=== PATIENT | female | born 1930 | race African-American/Black ===

== ENCOUNTER 2016-11-02 09:00 | Emergency (ER) | payer OTHER ==
[~2016-11-02] VITALS: Ht 157.5 cm; Wt 77.1 kg
[~2016-11-02 09:00] MED LIST: ALBUAER3 IN; CARV25TA55 PO; CLON0.2T PO; DILT120C48 PO; FAMO-12 PO; FURO40TA4 PO; INSUINJ37 SUBCUT; IPRIH IN; LATA0.00 EACHEYE; LISI40TA PO; PRAV20TA3 PO; RIV20T PO
[2016-11-02 10:28] LABS: Basophils # (auto) 0 uL; Basophils % (auto) 0.7 % (0.0-2.0); Eosinophils # (auto) 0.1 uL; Hematocrit 41.2 % (36.0-46.0); Hemoglobin 13.7 g/dL (12.2-16.2); Lymphocytes # (auto) 2.3 uL; Lymphocytes % (auto) 34.4 % (10.0-50.0); Mean Corpuscular Hemoglobin 31.1 pg (28.0-32.0); Mean Corpuscular Hgb Conc. 33.3 g/dL (32.0-36.0); Mean Corpuscular Volume 93.3 fL (80.0-100.0); Mean Platelet Volume 8.9 fL (6.9-10.8); Monocytes # (auto) 0.7 uL; Neutrophils # (auto) 3.5 uL; Neutrophils % (auto) 52.9 % (37.0-80.0); Nucleated Red Blood Cells % 0.1 %; Platelet Count (auto) 186 10^3/uL (140-450); Red Cell Distribution Width 15.8 % (11.8-14.3); White Blood Cell 6.7 10^3/uL (4.4-10.8)
[2016-11-02 10:40] LABS: INR 1.24 (0.9-1.15); Partial Thromboplastin Time 38.9 sec (22.64-33.71); Prothrombin Time 13.5 sec (9.37-12.3)
[2016-11-02 11:13] LABS: Albumin 2.9 g/dL (3.4-5.0); BUN/Creatinine Ratio 14.6; Bilirubin, Total 0.4 mg/dL (0.2-1.0); Calcium 8.7 mg/dL (8.5-10.1); Potassium 4.1 mmol/L (3.5-5.1); Total Protein 7.2 g/dL (6.4-8.2)
[2016-11-02 12:54] LABS: Basophils # (auto) 0.1 uL; Basophils % (auto) 0.9 % (0.0-2.0); Eosinophils # (auto) 0.1 uL; Eosinophils % (auto) 1.5 % (0.0-7.0); Hematocrit 43.8 % (36.0-46.0); Hemoglobin 14.5 g/dL (12.2-16.2); Lymphocytes % (auto) 41.2 % (10.0-50.0); Mean Corpuscular Hemoglobin 30.8 pg (28.0-32.0); Mean Corpuscular Volume 93.4 fL (80.0-100.0); Mean Platelet Volume 9.2 fL (6.9-10.8); Monocytes # (auto) 0.7 uL; Monocytes % (auto) 9.6 % (0.0-12.0); Neutrophils # (auto) 3.4 uL; Neutrophils % (auto) 46.8 % (37.0-80.0); Nucleated Red Blood Cells % 0.1 %; Platelet Count (auto) 178 10^3/uL (140-450); Red Cell Distribution Width 16.2 % (11.8-14.3); White Blood Cell 7.3 10^3/uL (4.4-10.8)
[2016-11-02 13:35] VITALS: BP 164/92
== END 2016-11-02 14:00 | disposition home or self-care (01) ==
LOC: ER 09:00
DX: K92.2 Gastrointestinal hemorrhage, unspecified (principal); E11.22 Type 2 diabetes mellitus with diabetic chronic kidney disease; I13.0 Hypertensive heart and chronic kidney disease with heart failure and stage 1 through stage 4 chronic kidney disease, or unspecified chronic kidney disease; N18.9 Chronic kidney disease, unspecified; J44.9 Chronic obstructive pulmonary disease, unspecified; E78.5 Hyperlipidemia, unspecified; Z86.711 Personal history of pulmonary embolism; Z90.49 Acquired absence of other specified parts of digestive tract
CPT/HCPCS: 36415; 74176; 80053; 85025; 85379; 85610; 85730; 93005

== ENCOUNTER 2016-12-19 21:40 | Emergency (ER) | payer OTHER ==
[~2016-12-19] VITALS: Ht 162.6 cm; Wt 81.6 kg
[~2016-12-19 21:40] MED LIST changes: -LATA0.00 EACHEYE; +LATA0.0020 EACHEYE
[2016-12-19] MEDS ORDERED: cloNIDine HCL 0.1 MG TAB PO ONE (22:15)
[2016-12-19 22:43] LABS: Basophils # (auto) 0 uL; Basophils % (auto) 0.8 % (0.0-2.0); Eosinophils # (auto) 0.2 uL; Eosinophils % (auto) 3.5 % (0.0-7.0); Hematocrit 43.7 % (36.0-46.0); Hemoglobin 14.3 g/dL (12.2-16.2); Lymphocytes # (auto) 2.2 uL; Lymphocytes % (auto) 37.7 % (10.0-50.0); Mean Corpuscular Hemoglobin 30.8 pg (28.0-32.0); Mean Corpuscular Hgb Conc. 32.8 g/dL (32.0-36.0); Mean Corpuscular Volume 93.8 fL (80.0-100.0); Monocytes # (auto) 0.7 uL; Monocytes % (auto) 11.6 % (0.0-12.0); Neutrophils # (auto) 2.7 uL; Neutrophils % (auto) 46.4 % (37.0-80.0); Nucleated Red Blood Cells % 0.1 %; Platelet Count (auto) 174 10^3/uL (140-450); Red Blood Cells 4.66 10^6/uL (4.0-5.20); Red Cell Distribution Width 16.6 % (11.8-14.3); White Blood Cell 5.8 10^3/uL (4.4-10.8)
[2016-12-19 22:55] LABS: Albumin 3.3 g/dL (3.4-5.0); BUN/Creatinine Ratio 13.6; Calcium 9.2 mg/dL (8.5-10.1); Magnesium 2.7 mg/dL (1.6-2.6); Potassium 4.3 mmol/L (3.5-5.1)
[2016-12-19 22:59] LABS: INR 1.53 (0.9-1.15); Partial Thromboplastin Time 46.9 sec (22.64-33.71); Prothrombin Time 16.8 sec (9.37-12.3)
[2016-12-19 23:00] LABS: Bilirubin, Total 0.4 mg/dL (0.2-1.0); Total Protein 7.2 g/dL (6.4-8.2)
[2016-12-20 01:00] VITALS: BP 179/75
== END 2016-12-20 01:34 | disposition home or self-care (01) ==
LOC: EDUNIT# 21:40 → EDBD 21:40 → ER 21:40
DX: R04.0 Epistaxis (principal); I13.0 Hypertensive heart and chronic kidney disease with heart failure and stage 1 through stage 4 chronic kidney disease, or unspecified chronic kidney disease; N18.9 Chronic kidney disease, unspecified; I50.9 Heart failure, unspecified; J44.9 Chronic obstructive pulmonary disease, unspecified; E11.22 Type 2 diabetes mellitus with diabetic chronic kidney disease; M10.9 Gout, unspecified; E78.5 Hyperlipidemia, unspecified; Z90.49 Acquired absence of other specified parts of digestive tract
CPT/HCPCS: 36415; 80053; 83735; 84484; 85025; 85610; 85730

== ENCOUNTER 2017-01-24 04:35 | Emergency (ER) | payer OTHER ==
[~2017-01-24] VITALS: Ht 157.5 cm; Wt 77.1 kg
[2017-01-24] MEDS ORDERED: MECLIZINE HCL 25 MG TAB PO ONE (05:00)
[2017-01-24] MEDS ORDERED: cloNIDine HCL 0.1 MG TAB PO ONE ×2 (05:00→11:45)
[2017-01-24 06:06] LABS: Basophils # (auto) 0 uL; Basophils % (auto) 0.8 % (0.0-2.0); Eosinophils # (auto) 0.1 uL; Eosinophils % (auto) 2.5 % (0.0-7.0); Hematocrit 44.5 % (36.0-46.0); Hemoglobin 14.8 g/dL (12.2-16.2); Lymphocytes # (auto) 2.2 uL; Lymphocytes % (auto) 40.5 % (10.0-50.0); Mean Corpuscular Hemoglobin 31.2 pg (28.0-32.0); Mean Corpuscular Hgb Conc. 33.3 g/dL (32.0-36.0); Mean Corpuscular Volume 93.7 fL (80.0-100.0); Mean Platelet Volume 8.9 fL (6.9-10.8); Monocytes # (auto) 0.6 uL; Monocytes % (auto) 10.9 % (0.0-12.0); Neutrophils # (auto) 2.4 uL; Neutrophils % (auto) 45.3 % (37.0-80.0); Platelet Count (auto) 172 10^3/uL (140-450); Red Cell Distribution Width 16.2 % (11.8-14.3); White Blood Cell 5.4 10^3/uL (4.4-10.8)
[2017-01-24 06:34] LABS: Urine Bilirubin Negative (Negative); Urine Blood Negative /uL (Negative); Urine Color Yellow (Yellow); Urine Glucose Normal (Normal); Urine Ketone Negative (Negative); Urine Nitrite Negative (Negative); Urine RBC 1 /hpf (0 - 4); Urine Squamous Epithelial Cell FEW /hpf (<5); Urine Urobilinogen Normal (Negative)
[2017-01-24 06:42] LABS: Albumin 3.4 g/dL (3.4-5.0); Calcium 8.7 mg/dL (8.5-10.1); Potassium 3.7 mmol/L (3.5-5.1)
[2017-01-24 07:05] LABS: Bilirubin, Total 0.4 mg/dL (0.2-1.0)
[2017-01-24 07:27] VITALS: BP 161/79
== END 2017-01-24 09:06 | disposition home or self-care (01) ==
LOC: EDBD 04:35 → ER 04:38
DX: R42 Dizziness and giddiness (principal); E11.22 Type 2 diabetes mellitus with diabetic chronic kidney disease; I13.0 Hypertensive heart and chronic kidney disease with heart failure and stage 1 through stage 4 chronic kidney disease, or unspecified chronic kidney disease; N18.9 Chronic kidney disease, unspecified; E78.5 Hyperlipidemia, unspecified; M10.9 Gout, unspecified; Z90.49 Acquired absence of other specified parts of digestive tract
CPT/HCPCS: 36415; 70450; 80053; 81001; 82962; 83880; 84484; 85025; 93005; 99285; J8597

== ENCOUNTER 2017-03-01 07:53 | Inpatient (IN) | payer OTHER ==
[~2017-03-01] VITALS: Ht 157.5 cm; Wt 74.8 kg
[2017-03-01] MEDS ORDERED: FUROSEMIDE 40 MG/4 ML VIAL IV ONE (08:00)
[2017-03-01 08:45] LABS: Basophils # (auto) 0 uL; Basophils % (auto) 0.7 % (0.0-2.0); Eosinophils # (auto) 0.1 uL; Eosinophils % (auto) 1.7 % (0.0-7.0); Lymphocytes # (auto) 2.2 uL; Lymphocytes % (auto) 34.9 % (10.0-50.0); Mean Corpuscular Hemoglobin 30.2 pg (28.0-32.0); Mean Corpuscular Hgb Conc. 32.4 g/dL (32.0-36.0); Mean Corpuscular Volume 93.1 fL (80.0-100.0); Monocytes # (auto) 0.6 uL; Monocytes % (auto) 9.7 % (0.0-12.0); Neutrophils # (auto) 3.3 uL; Nucleated Red Blood Cells % 0.1 %; Platelet Count (auto) 172 10^3/uL (140-450); Red Blood Cells 4.29 10^6/uL (4.0-5.20); Red Cell Distribution Width 16.2 % (11.8-14.3); White Blood Cell 6.2 10^3/uL (4.4-10.8)
[2017-03-01 09:00] LABS: Albumin 3.1 g/dL (3.4-5.0); Bilirubin, Total 0.4 mg/dL (0.2-1.0); Calcium 8.6 mg/dL (8.5-10.1); Magnesium 2.7 mg/dL (1.6-2.6); Potassium 4.5 mmol/L (3.5-5.1); Total Protein 7.2 g/dL (6.4-8.2)
[2017-03-01] MEDS ORDERED: MORPHINE SULFATE 10 MG/ML INJ 1ML SDV IV PRN (11:15)
[2017-03-01] MEDS ORDERED: NITROGLYCERIN 0.4 MG SL TAB SL PRN (11:15)
[2017-03-01] MEDS ORDERED: FUROSEMIDE 40 MG TAB PO ONE (11:45)
[2017-03-01] MEDS ORDERED: LISINOPRIL 20 MG TAB PO ONE (11:45)
[2017-03-01] MEDS ORDERED: FAMOTIDINE 20 MG TAB PO ONE (11:45)
[2017-03-01] MEDS ORDERED: DILTIAZEM HCL 120MG ER CAP PO ONE (11:45)
[2017-03-01 12:08] LABS: INR 1.31 (0.9-1.15); Partial Thromboplastin Time 42.7 sec (22.64-33.71); Prothrombin Time 14.3 sec (9.37-12.3)
[2017-03-01] MEDS ORDERED: DEXTROSE (50%) 50ML SYRG IV PRN (12:15)
[2017-03-01] MEDS ORDERED: cloNIDine HCL 0.1 MG TAB PO PRN (12:15)
[2017-03-01] MEDS: RIVAROXABAN 20 MG TAB PO SCH (13:37)
[2017-03-01 13:40] VITALS: BP 149/107
[2017-03-01 17:00] VITALS: BP 159/77
[2017-03-01] MEDS: ACCU-CHEK COMFORT CURVE STRIP VI SCH ×2 (17:00→22:19)
[2017-03-01] MEDS: InsuLIN REG 1unit/0.01ml Soln (100units/ml) SC SCH ×2 (17:43→22:19)
[2017-03-01] MEDS: ALBUTEROL SULF 2.5 MG/0.5ML(0.5%) NEB SOLN NEB PRN (20:50)
[2017-03-01] MEDS: IPRATROPIUM BROM 0.5 MG/2.5ML INH SOL NEB PRN (20:50)
[2017-03-01] MEDS: LATANOPROST 0.005 % OPTH(EYE) SOL 2.5ML EACHEYE SCH (21:39)
[2017-03-01] MEDS: PRAVASTATIN SODIUM 20 MG TAB PO SCH (21:39)
[2017-03-01] MEDS: DILTIAZEM HCL 120MG ER CAP PO SCH (21:40)
[2017-03-01] MEDS: CARVEDILOL 12.5 MG TAB PO SCH (21:41)
[2017-03-01 22:00] VITALS: BP 126/65
[2017-03-01] MEDS ORDERED: CARVEDILOL 3.125 MG TAB PO SCH (22:00)
[2017-03-01] MEDS: FAMOTIDINE 20 MG TAB PO SCH (22:00)
[2017-03-01] MEDS: INSULIN DETEMIR(LEVEMIR) 1unit/0.01ml Soln (100units/ml) SC SCH (22:20)
[2017-03-02 03:36] VITALS: BP 126/65
[2017-03-02] MEDS: ALBUTEROL SULF 2.5 MG/0.5ML(0.5%) NEB SOLN NEB PRN ×3 (04:32→14:32)
[2017-03-02] MEDS: IPRATROPIUM BROM 0.5 MG/2.5ML INH SOL NEB PRN ×3 (04:32→14:32)
[2017-03-02 05:00] VITALS: BP 131/64
[2017-03-02] MEDS: ACCU-CHEK COMFORT CURVE STRIP VI SCH ×4 (06:19→22:40)
[2017-03-02] MEDS: InsuLIN REG 1unit/0.01ml Soln (100units/ml) SC SCH ×4 (06:19→22:41)
[2017-03-02 06:55] LABS: Basophils # (auto) 0 uL; Basophils % (auto) 0.6 % (0.0-2.0); Eosinophils # (auto) 0.1 uL; Eosinophils % (auto) 1.5 % (0.0-7.0); Hematocrit 38.6 % (36.0-46.0); Hemoglobin 12.6 g/dL (12.2-16.2); Lymphocytes % (auto) 29.6 % (10.0-50.0); Mean Corpuscular Hemoglobin 30.5 pg (28.0-32.0); Mean Corpuscular Hgb Conc. 32.7 g/dL (32.0-36.0); Mean Corpuscular Volume 93.5 fL (80.0-100.0); Monocytes # (auto) 0.8 uL; Monocytes % (auto) 12.4 % (0.0-12.0); Neutrophils # (auto) 3.7 uL; Neutrophils % (auto) 55.9 % (37.0-80.0); Nucleated Red Blood Cells % 0.1 %; Platelet Count (auto) 166 10^3/uL (140-450); Red Blood Cells 4.12 10^6/uL (4.0-5.20); White Blood Cell 6.6 10^3/uL (4.4-10.8)
[2017-03-02 07:04] LABS: BUN/Creatinine Ratio 14.9; Calcium 8.8 mg/dL (8.5-10.1); Potassium 3.9 mmol/L (3.5-5.1)
[2017-03-02 07:07] LABS: Bilirubin, Total 0.4 mg/dL (0.2-1.0); Total Protein 6.9 g/dL (6.4-8.2)
[2017-03-02 07:09] LABS: INR 1.36 (0.9-1.15); Partial Thromboplastin Time 42.7 sec (22.64-33.71); Prothrombin Time 14.9 sec (9.37-12.3)
[2017-03-02 09:00] VITALS: BP 135/56
[2017-03-02] MEDS: RIVAROXABAN 20 MG TAB PO SCH (09:29)
[2017-03-02] MEDS: FAMOTIDINE 20 MG TAB PO SCH (09:30)
[2017-03-02] MEDS: CARVEDILOL 12.5 MG TAB PO SCH ×2 (09:30→22:39)
[2017-03-02] MEDS: DILTIAZEM HCL 120MG ER CAP PO SCH ×2 (09:30→22:39)
[2017-03-02] MEDS: LISINOPRIL 20 MG TAB PO SCH (09:31)
[2017-03-02] MEDS: FUROSEMIDE 40 MG TAB PO SCH (09:31)
[2017-03-02 13:00] VITALS: BP 136/69
[2017-03-02] MEDS ORDERED: ALPRAZolam 0.25 MG TAB PO PRN (13:00)
[2017-03-02] MEDS ORDERED: HYDROcodone-ACET 5/325MG TAB PO PRN (13:00)
[2017-03-02] MEDS ORDERED: ZOLPIDEM TARTRATE 5 MG TAB PO PRN (14:30)
[2017-03-02 17:00] VITALS: BP 147/61
[2017-03-02] MEDS: LATANOPROST 0.005 % OPTH(EYE) SOL 2.5ML EACHEYE SCH (22:37)
[2017-03-02] MEDS: PRAVASTATIN SODIUM 20 MG TAB PO SCH (22:38)
[2017-03-02] MEDS: INSULIN DETEMIR(LEVEMIR) 1unit/0.01ml Soln (100units/ml) SC SCH (22:40)
[2017-03-03] MEDS: ACCU-CHEK COMFORT CURVE STRIP VI SCH ×4 (06:43→22:05)
[2017-03-03] MEDS: InsuLIN REG 1unit/0.01ml Soln (100units/ml) SC SCH ×4 (06:43→22:19)
[2017-03-03] MEDS: ALBUTEROL SULF 2.5 MG/0.5ML(0.5%) NEB SOLN NEB PRN (06:45)
[2017-03-03] MEDS: IPRATROPIUM BROM 0.5 MG/2.5ML INH SOL NEB PRN (06:45)
[2017-03-03 06:54] LABS: INR 1.34 (0.9-1.15); Partial Thromboplastin Time 45.5 sec (22.64-33.71); Prothrombin Time 14.6 sec (9.37-12.3)
[2017-03-03 06:57] LABS: Basophils # (auto) 0 uL; Basophils % (auto) 0.5 % (0.0-2.0); Eosinophils # (auto) 0 uL; Eosinophils % (auto) 0.1 % (0.0-7.0); Hematocrit 39.6 % (36.0-46.0); Hemoglobin 13.2 g/dL (12.2-16.2); Lymphocytes # (auto) 1.4 uL; Lymphocytes % (auto) 19.1 % (10.0-50.0); Mean Corpuscular Hgb Conc. 33.2 g/dL (32.0-36.0); Mean Corpuscular Volume 93.4 fL (80.0-100.0); Monocytes # (auto) 0.7 uL; Monocytes % (auto) 8.6 % (0.0-12.0); Neutrophils # (auto) 5.5 uL; Neutrophils % (auto) 71.7 % (37.0-80.0); Platelet Count (auto) 173 10^3/uL (140-450); Red Blood Cells 4.24 10^6/uL (4.0-5.20); Red Cell Distribution Width 15.7 % (11.8-14.3); White Blood Cell 7.6 10^3/uL (4.4-10.8)
[2017-03-03 07:08] LABS: Albumin 3.3 g/dL (3.4-5.0); BUN/Creatinine Ratio 14.9; Bilirubin, Total 0.7 mg/dL (0.2-1.0); Calcium 8.6 mg/dL (8.5-10.1); Potassium 4.1 mmol/L (3.5-5.1); Total Protein 7.7 g/dL (6.4-8.2)
[2017-03-03 08:00] VITALS: BP 157/72
[2017-03-03] MEDS: RIVAROXABAN 20 MG TAB PO SCH (11:46)
[2017-03-03] MEDS: LISINOPRIL 20 MG TAB PO SCH (11:47)
[2017-03-03] MEDS: FAMOTIDINE 20 MG TAB PO SCH (11:48)
[2017-03-03] MEDS: CARVEDILOL 12.5 MG TAB PO SCH ×2 (11:48→22:04)
[2017-03-03] MEDS: DILTIAZEM HCL 120MG ER CAP PO SCH ×2 (11:48→22:04)
[2017-03-03] MEDS: FUROSEMIDE 40 MG TAB PO SCH (11:49)
[2017-03-03 12:00] VITALS: BP 149/68
[2017-03-03] MEDS ORDERED: methylPREDNISolone SOD SUCC 125 MG/2 ML VL IV SCH (14:00)
[2017-03-03] MEDS ORDERED: ALBUTEROL SULF 2.5 MG/0.5ML(0.5%) NEB SOLN NEB SCH (18:00)
[2017-03-03] MEDS ORDERED: ONDANSETRON HCL 4 MG/2 ML VIAL IV PRN (18:00)
[2017-03-03 20:00] VITALS: BP 131/56
[2017-03-03 22:00] VITALS: BP 131/56
[2017-03-03] MEDS: methylPREDNISolone SOD SUCC 40 MG/ML VL IV SCH (22:05)
[2017-03-03] MEDS: LATANOPROST 0.005 % OPTH(EYE) SOL 2.5ML EACHEYE SCH (22:05)
[2017-03-03] MEDS: PRAVASTATIN SODIUM 20 MG TAB PO SCH (22:05)
[2017-03-03] MEDS: IPRATROPIUM BROM 0.5 MG/2.5ML INH SOL NEB SCH (22:14)
[2017-03-03] MEDS: ALBUTEROL SULF 2.5 MG/0.5ML(0.5%) NEB SOLN NEB SCH (22:14)
[2017-03-03] MEDS: INSULIN DETEMIR(LEVEMIR) 1unit/0.01ml Soln (100units/ml) SC SCH (22:20)
[2017-03-04 05:00] VITALS: BP_SYST 131; BP_SYST 137; BP_DIAS 56; BP_DIAS 63
[2017-03-04] MEDS: InsuLIN REG 1unit/0.01ml Soln (100units/ml) SC SCH ×3 (06:27→17:12)
[2017-03-04] MEDS: ACCU-CHEK COMFORT CURVE STRIP VI SCH ×3 (06:27→17:12)
[2017-03-04 06:50] LABS: Basophils # (auto) 0 uL; Basophils % (auto) 0.2 % (0.0-2.0); Eosinophils # (auto) 0 uL; Eosinophils % (auto) 0.1 % (0.0-7.0); Hematocrit 39.9 % (36.0-46.0); Lymphocytes # (auto) 0.8 uL; Mean Corpuscular Hemoglobin 30.7 pg (28.0-32.0); Mean Corpuscular Hgb Conc. 32.6 g/dL (32.0-36.0); Mean Corpuscular Volume 94.2 fL (80.0-100.0); Monocytes # (auto) 0.2 uL; Monocytes % (auto) 2.8 % (0.0-12.0); Neutrophils # (auto) 4.6 uL; Neutrophils % (auto) 81.9 % (37.0-80.0); Nucleated Red Blood Cells % 0.3 %; Platelet Count (auto) 174 10^3/uL (140-450); Red Blood Cells 4.24 10^6/uL (4.0-5.20); White Blood Cell 5.6 10^3/uL (4.4-10.8)
[2017-03-04] MEDS: IPRATROPIUM BROM 0.5 MG/2.5ML INH SOL NEB SCH ×2 (06:54→14:39)
[2017-03-04] MEDS: ALBUTEROL SULF 2.5 MG/0.5ML(0.5%) NEB SOLN NEB SCH ×2 (06:54→14:39)
[2017-03-04 06:59] LABS: INR 1.34 (0.9-1.15); Partial Thromboplastin Time 44.1 sec (22.64-33.71); Prothrombin Time 14.7 sec (9.37-12.3)
[2017-03-04 07:05] LABS: Potassium 4.4 mmol/L (3.5-5.1)
[2017-03-04 07:09] LABS: Albumin 3.1 g/dL (3.4-5.0); BUN/Creatinine Ratio 18.3; Calcium 9.1 mg/dL (8.5-10.1)
[2017-03-04 07:21] LABS: Bilirubin, Total 0.5 mg/dL (0.2-1.0); Total Protein 7.5 g/dL (6.4-8.2)
[2017-03-04] MEDS ORDERED: ADENOSINE 63 MG in GIVE UN-DILUTED 0 ML IV ONE (08:30)
[2017-03-04 09:00] VITALS: BP 143/68
[2017-03-04 09:46] VITALS: BP 144/68
[2017-03-04] MEDS: methylPREDNISolone SOD SUCC 40 MG/ML VL IV SCH (10:56)
[2017-03-04] MEDS: FUROSEMIDE 40 MG TAB PO SCH (10:58)
[2017-03-04] MEDS: RIVAROXABAN 20 MG TAB PO SCH (10:58)
[2017-03-04] MEDS: DILTIAZEM HCL 120MG ER CAP PO SCH (10:58)
[2017-03-04] MEDS: FAMOTIDINE 20 MG TAB PO SCH (10:58)
[2017-03-04] MEDS: CARVEDILOL 12.5 MG TAB PO SCH (10:59)
[2017-03-04] MEDS: LISINOPRIL 20 MG TAB PO SCH (10:59)
[2017-03-04 13:00] VITALS: BP 137/55
[2017-03-04] MEDS ORDERED: DIL120C PO (15:18)
[2017-03-04 16:17] VITALS: BP 139/65
[2017-03-04 17:00] VITALS: BP 139/65
== END 2017-03-04 18:34 | disposition home health service (06) | DRG 291 ==
LOC: EDBD 07:53 → EDUNIT# 07:53 → ER 07:53 → TELE 07:54 → TELE-WESTW 13:59
PROVIDERS: ADMIT Internal Medicine; ATTEND Internal Medicine
DX: I13.0 Hypertensive heart and chronic kidney disease with heart failure and stage 1 through stage 4 chronic kidney disease, or unspecified chronic kidney disease (principal); J96.00 Acute respiratory failure, unspecified whether with hypoxia or hypercapnia; J18.0 Bronchopneumonia, unspecified organism; E11.22 Type 2 diabetes mellitus with diabetic chronic kidney disease; J44.0 Chronic obstructive pulmonary disease with (acute) lower respiratory infection; N18.3 Chronic kidney disease, stage 3 (moderate); I50.33 Acute on chronic diastolic (congestive) heart failure; Z79.899 Other long term (current) drug therapy; I44.7 Left bundle-branch block, unspecified; M10.9 Gout, unspecified; J44.9 Chronic obstructive pulmonary disease, unspecified; H40.9 Unspecified glaucoma; E78.5 Hyperlipidemia, unspecified; I25.10 Atherosclerotic heart disease of native coronary artery without angina pectoris; Z79.01 Long term (current) use of anticoagulants; Z79.4 Long term (current) use of insulin; Z82.3 Family history of stroke; Z82.49 Family history of ischemic heart disease and other diseases of the circulatory system; Z83.3 Family history of diabetes mellitus; Z86.711 Personal history of pulmonary embolism; Z87.891 Personal history of nicotine dependence; Z90.49 Acquired absence of other specified parts of digestive tract; Z95.1 Presence of aortocoronary bypass graft; Z95.3 Presence of xenogenic heart valve; Z80.9 Family history of malignant neoplasm, unspecified
CPT/HCPCS: 36415; 36600; 71045; 71250; 78452; 78582; 80053; 82805; 82962; 83605; 83735; 83880; 84484; 85025; 85379; 85610; 85730; 87040; 87400; 93005; 93017; 94640; 96374; 96375; 99291; J0153; J1815; J2405

== ENCOUNTER 2017-04-28 23:43 | Emergency (ER) | payer OTHER ==
[~2017-04-28] VITALS: Ht 167.6 cm; Wt 68.0 kg
[~2017-04-28 23:43] MED LIST changes: +DIL120C PO; -FAMO-12 PO
[2017-04-29] MEDS ORDERED: methylPREDNISolone SOD SUCC 125 MG/2 ML VL IV ONE ×2 (01:00→08:45)
[2017-04-29 01:34] LABS: INR 1.51 (0.9-1.15); Partial Thromboplastin Time 43.8 sec (22.64-33.71); Prothrombin Time 16.5 sec (9.37-12.3)
[2017-04-29 01:36] LABS: Hematocrit 42.3 % (36.0-46.0); Hemoglobin 13.4 g/dL (12.2-16.2); Mean Corpuscular Hemoglobin 29.3 pg (28.0-32.0); Mean Corpuscular Hgb Conc. 31.8 g/dL (32.0-36.0); Mean Corpuscular Volume 92.1 fL (80.0-100.0); Platelet Count (auto) 159 10^3/uL (140-450); Red Cell Distribution Width 16.3 % (11.8-14.3)
[2017-04-29 01:38] LABS: Albumin 3.3 g/dL (3.4-5.0); BUN/Creatinine Ratio 12.8; Calcium 8.9 mg/dL (8.5-10.1); Magnesium 2.5 mg/dL (1.6-2.6); Potassium 3.9 mmol/L (3.5-5.1)
[2017-04-29 01:39] LABS: Urine Bacteria FEW /hpf (None Seen); Urine Blood Negative /uL (Negative); Urine Hyaline Cast FEW /lpf (0 - 2); Urine Specific Gravity 1.016 (1.001-1.035); Urine WBC <1 /hpf (0 - 5)
[2017-04-29 01:40] LABS: Band Neutrophils % (manual) 0
[2017-04-29 01:41] LABS: Basophils % (manual) 0 (0.0-2.0); Blast Cells 0; Eosinophils % (manual) 0 (0-7); Metamyelocytes % 0; Myelocytes % 0; Promyelocytes % 0; Reactive Lymphocytes 0
[2017-04-29 01:43] LABS: Bilirubin, Total 0.4 mg/dL (0.2-1.0); Total Protein 7.2 g/dL (6.4-8.2)
[2017-04-29 02:31] LABS: Lymphocytes % (manual) 46 (10.0-50.0); Monocytes % (manual) 19 (0-12)
[2017-04-29] MEDS ORDERED: IPRATROPIUM BROM 0.5 MG/2.5ML INH SOL NEB ONE ×2 (03:45→09:45)
[2017-04-29] MEDS ORDERED: ALBUTEROL SULF 2.5 MG/0.5ML(0.5%) NEB SOLN NEB ONE ×2 (03:45→09:45)
[2017-04-29 07:32] VITALS: BP 134/59
[2017-04-29] MEDS ORDERED: IPRATROPIUM BROM 0.5 MG/2.5ML INH SOL ONE (09:35)
[2017-04-29] MEDS ORDERED: ALBUTEROL SULF 2.5 MG/0.5ML(0.5%) NEB SOLN ONE (09:35)
== END 2017-04-29 10:17 | disposition home or self-care (01) ==
LOC: EDBD 23:43 → ER 23:51
DX: J44.1 Chronic obstructive pulmonary disease with (acute) exacerbation (principal); D68.9 Coagulation defect, unspecified; I13.0 Hypertensive heart and chronic kidney disease with heart failure and stage 1 through stage 4 chronic kidney disease, or unspecified chronic kidney disease; E11.22 Type 2 diabetes mellitus with diabetic chronic kidney disease; N18.9 Chronic kidney disease, unspecified; I50.9 Heart failure, unspecified; E78.00 Pure hypercholesterolemia, unspecified; Z90.49 Acquired absence of other specified parts of digestive tract; Z87.891 Personal history of nicotine dependence
CPT/HCPCS: 36415; 36600; 71045; 80053; 81001; 82805; 83735; 83880; 84484; 85007; 85027; 85610; 85730; 93005; 94640; 96374; 96375; 99285; J2930

== ENCOUNTER 2018-11-06 08:04 | Emergency (ER) | payer OTHER ==
[~2018-11-06] VITALS: Ht 157.5 cm; Wt 69.4 kg
[~2018-11-06 08:04] MED LIST changes: -DIL120C PO; +DILT120C12 PO
[2018-11-06] MEDS ORDERED: SODIUM CHLORIDE 0.9% 1,000 ML IV ONE (08:20)
[2018-11-06 08:44] LABS: Basophils # (auto) 0 uL; Basophils % (auto) 0.7 % (0.0-2.0); Eosinophils # (auto) 0.1 uL; Eosinophils % (auto) 1.8 % (0.0-7.0); Hematocrit 42.3 % (36.0-46.0); Hemoglobin 14.3 g/dL (12.2-16.2); Lymphocytes # (auto) 2.4 uL; Lymphocytes % (auto) 33.2 % (10.0-50.0); Mean Corpuscular Hemoglobin 30.4 pg (28.0-32.0); Mean Corpuscular Hgb Conc. 33.9 g/dL (32.0-36.0); Mean Corpuscular Volume 89.7 fL (80.0-100.0); Monocytes # (auto) 0.6 uL; Monocytes % (auto) 8.1 % (0.0-12.0); Neutrophils % (auto) 56.2 % (37.0-80.0); Nucleated Red Blood Cells % 0.2 %; Platelet Count (auto) 177 10^3/uL (140-450); Red Blood Cells 4.71 10^6/uL (4.0-5.20); Red Cell Distribution Width 15.8 % (11.8-14.3); White Blood Cell 7.1 10^3/uL (4.4-10.8)
[2018-11-06 09:00] LABS: INR 0.95 (0.9-1.15); Partial Thromboplastin Time 26.9 sec (23.64-32.05)
[2018-11-06 09:02] LABS: Albumin 3.5 g/dL (3.4-5.0); Magnesium 2.4 mg/dL (1.6-2.6); Potassium 4.1 mmol/L (3.5-5.1)
[2018-11-06 09:04] LABS: Bilirubin, Total 0.5 mg/dL (0.2-1.0)
[2018-11-06 10:24] LABS: Urine Bacteria FEW /hpf (None Seen); Urine Blood 3+ /uL (Negative); Urine Specific Gravity 1.013 (1.001-1.035); Urine WBC 1 /hpf (0 - 5)
[2018-11-06] MEDS ORDERED: cefTRIAXone 1GM/50ML D5W 50 ML IV ONE (11:00)
[2018-11-06 12:42] VITALS: BP 162/65
== END 2018-11-06 14:58 | disposition home or self-care (01) ==
LOC: ER 08:04 → EDBD 08:04 → ER 14:58
DX: I24.9 Acute ischemic heart disease, unspecified (principal); E78.00 Pure hypercholesterolemia, unspecified; E11.22 Type 2 diabetes mellitus with diabetic chronic kidney disease; I13.0 Hypertensive heart and chronic kidney disease with heart failure and stage 1 through stage 4 chronic kidney disease, or unspecified chronic kidney disease; N18.3 Chronic kidney disease, stage 3 (moderate); I50.9 Heart failure, unspecified; M10.9 Gout, unspecified; E78.5 Hyperlipidemia, unspecified; Z79.899 Other long term (current) drug therapy; Z79.4 Long term (current) use of insulin; Z87.891 Personal history of nicotine dependence; Z90.49 Acquired absence of other specified parts of digestive tract
CPT/HCPCS: 36415; 71045; 74176; 80053; 81001; 82962; 83735; 83880; 84484; 85025; 85610; 85730; 93005; 96361; 96365; 99284; J0696; J7030

== ENCOUNTER 2018-12-10 04:58 | Inpatient (IN) | payer OTHER ==
[~2018-12-10] VITALS: Ht 157.5 cm; Wt 70.5 kg
[2018-12-10] MEDS ORDERED: SODIUM CHLORIDE 0.9% 1,000 ML IV ONE (07:29)
[2018-12-10 08:00] LABS: Basophils # (auto) 0 uL; Basophils % (auto) 0.7 % (0.0-2.0); Eosinophils # (auto) 0.1 uL; Eosinophils % (auto) 1.2 % (0.0-7.0); Hematocrit 40.6 % (36.0-46.0); Hemoglobin 13.3 g/dL (12.2-16.2); Lymphocytes # (auto) 2.2 uL; Mean Corpuscular Hemoglobin 30.4 pg (28.0-32.0); Mean Corpuscular Hgb Conc. 32.8 g/dL (32.0-36.0); Mean Corpuscular Volume 92.6 fL (80.0-100.0); Monocytes # (auto) 0.6 uL; Monocytes % (auto) 10.5 % (0.0-12.0); Neutrophils # (auto) 2.7 uL; Neutrophils % (auto) 47.6 % (37.0-80.0); Nucleated Red Blood Cells % 0.2 %; Platelet Count (auto) 142 10^3/uL (140-450); Red Blood Cells 4.39 10^6/uL (4.0-5.20); Red Cell Distribution Width 15.7 % (11.8-14.3); White Blood Cell 5.6 10^3/uL (4.4-10.8)
[2018-12-10 08:16] LABS: Urine Bacteria FEW /hpf (None Seen); Urine Blood 3+ /uL (Negative); Urine Hyaline Cast FEW /lpf (0 - 2); Urine WBC 4 /hpf (0 - 5)
[2018-12-10 08:18] LABS: Potassium 4.1 mmol/L (3.5-5.1)
[2018-12-10 08:21] LABS: Albumin 3.2 g/dL (3.4-5.0); BUN/Creatinine Ratio 16.1; Calcium 8.4 mg/dL (8.5-10.1)
[2018-12-10 08:26] LABS: Bilirubin, Total 0.4 mg/dL (0.2-1.0); Total Protein 6.5 g/dL (6.4-8.2)
[2018-12-10] MEDS ORDERED: ALBUTEROL SULF 2.5 MG/0.5ML(0.5%) NEB SOLN NEB ONE (13:00)
[2018-12-10] MEDS ORDERED: FUROSEMIDE 40 MG/4 ML VIAL IV ONE (13:00)
[2018-12-10] MEDS ORDERED: IPRATROPIUM BROM 0.5 MG/2.5ML INH SOL NEB ONE (13:00)
[2018-12-10] MEDS ORDERED: ALUM & MAG HYDROX-SIMETH LIQ(MAALOX) 30 ML PO PRN (15:00)
[2018-12-10] MEDS ORDERED: DOCUSATE SOD 100 MG CAP PO PRN (15:00)
[2018-12-10] MEDS ORDERED: MORPHINE SULF INJ 2 MG/ML SYRINGE 1ML IV PRN (15:00)
[2018-12-10] MEDS ORDERED: NITROGLYCERIN 0.4 MG SL TAB SL PRN (15:00)
[2018-12-10] MEDS ORDERED: ONDANSETRON HCL 4 MG/2 ML VIAL IV PRN (15:00)
[2018-12-10] MEDS ORDERED: hydrALAZINE HCL 20 MG/ML VL IV PRN (15:30)
[2018-12-10] MEDS: FAMOTIDINE 20 MG TAB PO SCH (15:40)
[2018-12-10] MEDS ORDERED: ALBUTEROL SULF 2.5 MG/0.5ML(0.5%) NEB SOLN NEB PRN ×2 (15:45)
[2018-12-10] MEDS ORDERED: IPRATROPIUM BROM 0.5 MG/2.5ML INH SOL NEB PRN (15:45)
--- NOTE | 2018-12-10 16:15 | NUR ---
Telemetry admit from [facility] admitted to Telemetry unit after SBAR received. Patient oriented to Elsy Dowd, primary RN, unit, room, bed, and unit policies regarding patient care and visiting hours. Patient now on continuous telemetry monitoring, tele box #75 and telemetry reading on arrival to unit is sinus rhythm at 84. No S/S of distress or SOB, no pain noted or reported at this time. Updated on POC and instructed to call as needed for assictance, patient verbalized understanding. Bed locked in lowest position, side rails up x2, call light within reach. Will continue monitor q1hr and PRN.
[2018-12-10 17:20] VITALS: BP 150/72
[2018-12-10] MEDS ORDERED: RIVAROXABAN 20 MG TAB PO SCH (18:00)
[2018-12-10] MEDS: FUROSEMIDE 40 MG/4 ML VIAL IV SCH (18:30)
--- NOTE | 2018-12-10 18:50 | NUR ---
Patient Rounds Patient resting in bed with eyes closed. No S/S of distress or SOB. Care will be endorsed to cnc machinist 2nd shift RN.
--- NOTE | 2018-12-10 19:10 | NUR ---
Respiratory note: PT ASSESSED FOR PRN MED NEB TX. HR 88, RR 14, SPO2 92% ON 3L NC. NO SIGNS OF ANY RESPIRATORY DISTRESS NOTED. ADVISED PT TO CALL IF TX IS NEEDED. RT NAME AND PAGER NUMBER WRITTEN ON PT'S BOARD.
[2018-12-10 22:00] VITALS: BP 144/69
[2018-12-10] MEDS ORDERED: PRAVASTATIN SODIUM 20 MG TAB PO SCH (22:00)
[2018-12-10] MEDS ORDERED: LATANOPROST 0.005 % OPTH(EYE) SOL 2.5ML EACHEYE SCH (22:00)
[2018-12-10] MEDS: DILTIAZEM HCL 120MG ER CAP PO SCH (22:05)
[2018-12-10] MEDS: cloNIDine HCL 0.1 MG TAB PO SCH (22:05)
[2018-12-10] MEDS: CARVEDILOL 12.5 MG TAB PO SCH (22:06)
[2018-12-10 22:47] VITALS: BP 144/69
[2018-12-11 05:00] VITALS: BP 134/57
[2018-12-11] MEDS: FUROSEMIDE 40 MG/4 ML VIAL IV SCH (05:48)
--- NOTE | 2018-12-11 05:56 | NUR ---
GAVE REPORT TO NURSE INTERIANO TO RESUME CARE OF PATIENT. PATIENT MADE AWARE OF ROOM CHANGE AND VERBALIZES UNDERSTANDING
--- NOTE | 2018-12-11 06:00 | NUR ---
Received patient from KELSEY Tom, patient alert/oriented, not in distress. Instructed on POC and to call for assist as needed. Patient verbalized understanding, call light within reach, bed alarm on, will continue to monitor
[2018-12-11 06:10] LABS: Potassium 3.9 mmol/L (3.5-5.1)
[2018-12-11 06:17] LABS: BUN/Creatinine Ratio 13.4; Calcium 8.4 mg/dL (8.5-10.1)
--- NOTE | 2018-12-11 07:25 | NUR ---
Opening Shift Note Assumed care of patient, awake and alert sitting in bed. No S/S of distress/SOB or pain. Instructed on POC and to call for assist PRN, call light within reach and bed in locked and lowest position. Will continue to monitor for changes Q1hr and PRN.
--- NOTE | 2018-12-11 07:42 | NUR ---
Respiratory note: Assessed pt for prn medneb tx. HR 66, RR 16, POX 94% on 2L NC. Breath sounds clear/diminished throughout. No s/s of respiratory distress noted. Medneb tx not indicated at this time. Advised pt to call for RT if needed.
[2018-12-11] MEDS ORDERED: INSULIN LANTUS (GLARGINE) 1 /0.01ml (100units/ml) SC SCH (08:00)
[2018-12-11 09:00] VITALS: BP 141/65
--- NOTE | 2018-12-11 09:47 | NUR ---
Dr. Ramirez bedside with patient discussing plan of care.
[2018-12-11] MEDS: DILTIAZEM HCL 120MG ER CAP PO SCH (10:00)
[2018-12-11] MEDS ORDERED: LISINOPRIL 20 MG TAB PO SCH (10:00)
[2018-12-11] MEDS ORDERED: predniSONE 20 MG TAB PO SCH (10:00)
[2018-12-11] MEDS: cloNIDine HCL 0.1 MG TAB PO SCH (10:01)
[2018-12-11] MEDS: CARVEDILOL 12.5 MG TAB PO SCH (10:02)
[2018-12-11] MEDS: FAMOTIDINE 20 MG TAB PO SCH (10:03)
[2018-12-11] MEDS ORDERED: OPTISON 3ml Vial for INJ IV ONE (11:03)
[2018-12-11 12:35] VITALS: BP 141/65
--- NOTE | 2018-12-11 14:25 | NUR ---
Discharge instructions given as ordered to patient and patients daughter. Encourage to follow up with PMD as instructed, with appointment set. All questions and concerns addressed. Patient verbalized understanding. Medication reconciliation form completed and copy given to patient. No vaccines given, patient refused. IV removed with catheter intact, pressure dressing applied, horne catheter removed. Telemetry unit returned to ICU. .
--- NOTE | 2018-12-11 14:25 | NUR ---
Patient taken to vehicle via wheelchair with all personal belongings, accompanied by staff and family member. No distress noted at time of departure
--- NOTE | 2018-12-11 16:17 | NUR ---
D/C Planning Per consult for home health safety and home O2. Contact Gopi Vallecillo Ph:) Fax:) Faxed medical records. Per Melinda order has been received and service to start within 48hrs upon d/c day. Contact Ph:) Fax:) Faxed medical records. Per Stephanie from referral has been received and oxygen to be deliver to bedside. Contact Johnny Ph:) spoke to Sury. Sury advised me authorization has been given to home health and DME. Informed KELSEY Chin. Addendum: 12/11/18 at 1622 by LISBETH RODRIGUEZ Amended: Links added.
== END 2018-12-11 14:25 | disposition home health service (06) | DRG 291 ==
LOC: EDBD 04:58 → ER 04:58 → TELE 04:59 → TELE-WESTW 16:20 → TELE-CENTR 12-11 05:36
PROVIDERS: ADMIT Hospitalist; ATTEND Hospitalist
DX: I13.0 Hypertensive heart and chronic kidney disease with heart failure and stage 1 through stage 4 chronic kidney disease, or unspecified chronic kidney disease (principal); J96.01 Acute respiratory failure with hypoxia; I50.33 Acute on chronic diastolic (congestive) heart failure; E44.1 Mild protein-calorie malnutrition; E11.21 Type 2 diabetes mellitus with diabetic nephropathy; E11.22 Type 2 diabetes mellitus with diabetic chronic kidney disease; E78.5 Hyperlipidemia, unspecified; H40.9 Unspecified glaucoma; I27.20 Pulmonary hypertension, unspecified; J44.9 Chronic obstructive pulmonary disease, unspecified; F41.9 Anxiety disorder, unspecified; M10.9 Gout, unspecified; I16.0 Hypertensive urgency; N18.3 Chronic kidney disease, stage 3 (moderate); Z79.01 Long term (current) use of anticoagulants; Z95.2 Presence of prosthetic heart valve; Z68.28 Body mass index [BMI] 28.0-28.9, adult; Z79.4 Long term (current) use of insulin; Z82.3 Family history of stroke; Z82.49 Family history of ischemic heart disease and other diseases of the circulatory system; Z83.3 Family history of diabetes mellitus; Z86.711 Personal history of pulmonary embolism; Z90.49 Acquired absence of other specified parts of digestive tract
CPT/HCPCS: 36415; 36600; 71045; 78582; 80048; 80053; 81001; 82805; 82962; 83735; 83880; 84443; 84484; 85025; 85379; 93005; 93306; 93970; 94640; G0378; J1815; J2405; Q9956

== ENCOUNTER 2019-03-23 06:59 | Emergency (ER) | payer OTHER ==
[~2019-03-23] VITALS: Ht 157.5 cm; Wt 68.0 kg
[~2019-03-23 06:59] MED LIST changes: +ALBU0.5N2 IN; +ALBU1.257 IN; -DILT120C12 PO; +PANT40TA2 PO; +POTA1TAB64 PO
[2019-03-23 08:18] LABS: Basophils # (auto) 0 uL; Basophils % (auto) 0.7 % (0.0-2.0); Eosinophils # (auto) 0.1 uL; Eosinophils % (auto) 1.4 % (0.0-7.0); Hematocrit 42.4 % (36.0-46.0); Hemoglobin 13.6 g/dL (12.2-16.2); Lymphocytes % (auto) 37.6 % (10.0-50.0); Mean Corpuscular Hemoglobin 30.3 pg (28.0-32.0); Mean Corpuscular Volume 94.7 fL (80.0-100.0); Monocytes # (auto) 0.5 uL; Monocytes % (auto) 10.2 % (0.0-12.0); Neutrophils # (auto) 2.6 uL; Neutrophils % (auto) 50.1 % (37.0-80.0); Nucleated Red Blood Cells % 0.1 %; Platelet Count (auto) 158 10^3/uL (140-450); Red Blood Cells 4.48 10^6/uL (4.0-5.20); Red Cell Distribution Width 16.6 % (11.8-14.3); White Blood Cell 5.3 10^3/uL (4.4-10.8)
[2019-03-23 08:29] LABS: Urine Bacteria NONE SEEN /hpf (None Seen); Urine Blood Negative /uL (Negative); Urine Specific Gravity 1.006 (1.001-1.035); Urine WBC <1 /hpf (0 - 5)
[2019-03-23 08:36] LABS: Albumin 3.4 g/dL (3.4-5.0); Calcium 9.2 mg/dL (8.5-10.1); Potassium 3.6 mmol/L (3.5-5.1)
[2019-03-23 08:39] LABS: BUN/Creatinine Ratio 8.7; Bilirubin, Total 0.5 mg/dL (0.2-1.0); Total Protein 6.9 g/dL (6.4-8.2)
[2019-03-23] MEDS ORDERED: PHENAZOPYRIDINE HCL 100 MG TAB PO ONE (10:30)
[2019-03-23 11:23] VITALS: BP 148/63
== END 2019-03-23 11:36 | disposition home or self-care (01) ==
LOC: EDBD 06:59 → ER 06:59
DX: F41.9 Anxiety disorder, unspecified (principal); R30.0 Dysuria; I13.0 Hypertensive heart and chronic kidney disease with heart failure and stage 1 through stage 4 chronic kidney disease, or unspecified chronic kidney disease; E11.22 Type 2 diabetes mellitus with diabetic chronic kidney disease; N18.9 Chronic kidney disease, unspecified; I50.9 Heart failure, unspecified; Z90.49 Acquired absence of other specified parts of digestive tract
CPT/HCPCS: 36415; 80053; 81001; 85025

== ENCOUNTER 2019-05-28 03:23 | Inpatient (IN) | payer OTHER ==
[~2019-05-28] VITALS: Ht 157.5 cm; Wt 68.0 kg
[2019-05-28 04:09] LABS: Basophils # (auto) 0.1 10 ^3/uL (0-0.2); Basophils % (auto) 0.6 % (0.0-2.0); Eosinophils # (auto) 0.1 10 ^3/uL (0-0.8); Eosinophils % (auto) 1.3 % (0.0-7.0); Hematocrit 40.7 % (36.0-46.0); Hemoglobin 13.6 g/dL (12.2-16.2); Lymphocytes % (auto) 45.3 % (10.0-50.0); Mean Corpuscular Hemoglobin 30.8 pg (28.0-32.0); Mean Corpuscular Hgb Conc. 33.3 g/dL (32.0-36.0); Mean Corpuscular Volume 92.6 fL (80.0-100.0); Monocytes # (auto) 0.7 10 ^3/uL (0-1.3); Monocytes % (auto) 7.9 % (0.0-12.0); Neutrophils % (auto) 44.9 % (37.0-80.0); Nucleated Red Blood Cells % 0.1 %; Platelet Count (auto) 195 10^3/uL (140-450); Red Cell Distribution Width 15.6 % (11.8-14.3); White Blood Cell 8.9 10^3/uL (4.4-10.8)
[2019-05-28 04:27] LABS: Albumin 3.4 g/dL (3.4-5.0); Calcium 8.8 mg/dL (8.5-10.1); Potassium 3.4 mmol/L (3.5-5.1)
[2019-05-28 04:32] LABS: BUN/Creatinine Ratio 13.5; Bilirubin, Total 0.4 mg/dL (0.2-1.0); Total Protein 7.5 g/dL (6.4-8.2)
[2019-05-28] MEDS ORDERED: FUROSEMIDE 20 MG/2 ML VIAL IV ONE (05:00)
[2019-05-28] MEDS ORDERED: FUROSEMIDE INJECTION 100 MG in SODIUM CHL 0.9% 100 ML IV ONE (05:00)
[2019-05-28 06:04] LABS: INR 1.01 (0.9-1.15); Partial Thromboplastin Time 26.5 sec (23.64-32.05)
[2019-05-28 06:33] LABS: Urine Bacteria FEW /hpf (None Seen); Urine Blood Negative /uL (Negative); Urine Specific Gravity 1.004 (1.001-1.035); Urine WBC 123 /hpf (0 - 5)
[2019-05-28] MEDS ORDERED: ALBUTEROL SULF 2.5 MG/0.5ML(0.5%) NEB SOLN NEB PRN (07:00)
[2019-05-28] MEDS ORDERED: DOCUSATE SOD 100 MG CAP PO PRN (07:00)
[2019-05-28] MEDS ORDERED: MORPHINE SULF INJ 2 MG/ML SYRINGE 1ML IV PRN ×2 (07:00)
[2019-05-28] MEDS ORDERED: ONDANSETRON HCL 4 MG/2 ML VIAL IV PRN (07:00)
[2019-05-28] MEDS ORDERED: NITROGLYCERIN 0.4 MG SL TAB SL PRN (07:00)
[2019-05-28] MEDS ORDERED: POTASSIUM CHL 20MEQ/100ML 100 ML IV ONE (07:15)
[2019-05-28] MEDS ORDERED: DEXTROSE (50%) 50ML SYRG IV PRN (07:15)
[2019-05-28] MEDS ORDERED: cefTRIAXone 1GM/50ML D5W 50 ML IV SCH (09:00)
[2019-05-28] MEDS ORDERED: POTASSIUM CHLORIDE 8 MEQ TAB PO SCH (10:00)
[2019-05-28] MEDS ORDERED: LISINOPRIL 20 MG TAB PO SCH (10:00)
[2019-05-28] MEDS ORDERED: ASPirin-EC 81 mg tab PO SCH (10:00)
[2019-05-28] MEDS ORDERED: RIVAROXABAN 20 MG TAB PO SCH (10:00)
[2019-05-28] MEDS ORDERED: CARVEDILOL 12.5 MG TAB PO SCH (10:00)
[2019-05-28] MEDS ORDERED: cloNIDine HCL 0.1 MG TAB PO SCH (10:00)
[2019-05-28] MEDS ORDERED: PANTOPRAZOLE 40 MG TAB PO SCH (10:00)
[2019-05-28 10:48] VITALS: BP 168/88
[2019-05-28 11:04] VITALS: BP 168/88
[2019-05-28] MEDS ORDERED: ACCU-CHEK COMFORT CURVE STRIP VI SCH (11:30)
[2019-05-28] MEDS ORDERED: InsuLIN REG 1unit/0.01ml Soln (100units/ml) SC SCH (11:30)
[2019-05-28 13:00] VITALS: BP 142/71
[2019-05-28] MEDS ORDERED: LATANOPROST 0.005 % OPTH(EYE) SOL 2.5ML EACHEYE SCH (18:00)
[2019-05-28] MEDS ORDERED: PRAVASTATIN SODIUM 20 MG TAB PO SCH (18:00)
[2019-05-29] MEDS ORDERED: FUROSEMIDE 40 MG/4 ML VIAL IV SCH (10:00)
== END 2019-05-28 17:26 | disposition home health service (06) | DRG 189 ==
LOC: EDBD 03:23 → ER 03:38 → TELE 03:39 → TELE-CENTR 09:32
PROVIDERS: ADMIT Hospitalist; ATTEND Hospitalist
DX: J96.21 Acute and chronic respiratory failure with hypoxia (principal); I50.43 Acute on chronic combined systolic (congestive) and diastolic (congestive) heart failure; I13.0 Hypertensive heart and chronic kidney disease with heart failure and stage 1 through stage 4 chronic kidney disease, or unspecified chronic kidney disease; I24.9 Acute ischemic heart disease, unspecified; J44.9 Chronic obstructive pulmonary disease, unspecified; E11.22 Type 2 diabetes mellitus with diabetic chronic kidney disease; E78.5 Hyperlipidemia, unspecified; E87.6 Hypokalemia; N18.3 Chronic kidney disease, stage 3 (moderate); Z95.3 Presence of xenogenic heart valve; Z90.49 Acquired absence of other specified parts of digestive tract; Z87.442 Personal history of urinary calculi; Z87.891 Personal history of nicotine dependence; Z86.711 Personal history of pulmonary embolism
CPT/HCPCS: 36415; 71045; 80053; 81001; 82962; 83880; 84484; 85025; 85610; 85730; 87086; 87088; 87186; 93306; 96365; 96368; 96375; G0378; J0696; J1815; J3480

== ENCOUNTER 2019-05-29 03:08 | Inpatient (IN) | payer OTHER ==
[2019-05-29] VITALS (10 sets, daily range): BP systolic 145–184; BP diastolic 60–91
[~2019-05-29] VITALS: Ht 157.5 cm; Wt 67.5 kg
[~2019-05-29 03:08] MED LIST changes: -LISI40TA PO; +LISI40TA11 PO
[2019-05-29] MEDS ORDERED: methylPREDNISolone SOD SUCC 125 MG/2 ML VL IV ONE (03:45)
[2019-05-29 03:46] LABS: Basophils # (auto) 0 10 ^3/uL (0-0.2); Basophils % (auto) 0.4 % (0.0-2.0); Eosinophils # (auto) 0.1 10 ^3/uL (0-0.8); Eosinophils % (auto) 0.7 % (0.0-7.0); Hematocrit 40.5 % (36.0-46.0); Hemoglobin 13.6 g/dL (12.2-16.2); Lymphocytes # (auto) 2.4 10 ^3/uL (0.4-5.4); Lymphocytes % (auto) 31.1 % (10.0-50.0); Mean Corpuscular Hgb Conc. 33.7 g/dL (32.0-36.0); Mean Corpuscular Volume 92.1 fL (80.0-100.0); Monocytes # (auto) 0.7 10 ^3/uL (0-1.3); Monocytes % (auto) 9.3 % (0.0-12.0); Neutrophils # (auto) 4.4 10 ^3/uL (1.6-8.6); Neutrophils % (auto) 58.5 % (37.0-80.0); Nucleated Red Blood Cells % 0.1 %; Platelet Count (auto) 175 10^3/uL (140-450); Red Cell Distribution Width 15.3 % (11.8-14.3); White Blood Cell 7.6 10^3/uL (4.4-10.8)
[2019-05-29 04:04] LABS: Albumin 3.2 g/dL (3.4-5.0); BUN/Creatinine Ratio 10.9; Calcium 8.8 mg/dL (8.5-10.1); Potassium 4.3 mmol/L (3.5-5.1)
[2019-05-29 04:08] LABS: Bilirubin, Total 0.4 mg/dL (0.2-1.0); Total Protein 7.5 g/dL (6.4-8.2)
[2019-05-29] MEDS ORDERED: MORPHINE SULF INJ 2 MG/ML SYRINGE 1ML IV PRN ×2 (07:15→08:30)
[2019-05-29] MEDS ORDERED: MORPHINE SULFATE 4 MG/ML SYR/VIAL IV PRN (07:15)
[2019-05-29] MEDS ORDERED: ONDANSETRON HCL 4 MG/2 ML VIAL IV PRN (07:15)
[2019-05-29] MEDS ORDERED: DEXTROSE (50%) 50ML SYRG IV PRN (07:15)
[2019-05-29] MEDS ORDERED: NITROGLYCERIN 0.4 MG SL TAB SL PRN ×2 (07:15→08:30)
[2019-05-29] MEDS ORDERED: DOCUSATE SOD 100 MG CAP PO PRN (07:15)
[2019-05-29] MEDS ORDERED: FUROSEMIDE 40 MG TAB PO SCH (07:25)
[2019-05-29] MEDS ORDERED: FUROSEMIDE 20 MG/2 ML VIAL ONE (08:25)
[2019-05-29] MEDS ORDERED: FUROSEMIDE 40 MG/4 ML VIAL IV ONE (08:30)
[2019-05-29] MEDS: FAMOTIDINE 20 MG TAB PO SCH (08:35)
[2019-05-29] MEDS: POTASSIUM CHLORIDE 8 MEQ TAB PO SCH (08:35)
[2019-05-29 08:46] LABS: Urine Bacteria NONE SEEN /hpf (None Seen); Urine Blood Negative /uL (Negative); Urine Specific Gravity 1.009 (1.001-1.035); Urine WBC 5 /hpf (0 - 5)
[2019-05-29] MEDS ORDERED: ENOXAPARIN SOD 40 MG/0.4 ML SYRINGE SC SCH (10:00)
[2019-05-29] MEDS ORDERED: ALBUTEROL SULF 2.5 MG/0.5ML(0.5%) NEB SOLN NEB SCH (10:00)
[2019-05-29] MEDS ORDERED: IPRATROPIUM BROM 0.5 MG/2.5ML INH SOL NEB SCH (10:00)
[2019-05-29] MEDS ORDERED: levoFLOXacin 500MG 100 ML IV SCH (10:00)
[2019-05-29] MEDS ORDERED: cloNIDine HCL 0.1 MG TAB PO ONE (10:45)
[2019-05-29] MEDS ORDERED: LISINOPRIL 20 MG TAB PO ONE (10:45)
[2019-05-29] MEDS: LATANOPROST 0.005 % OPTH(EYE) SOL 2.5ML EACHEYE SCH ×2 (10:45→22:00)
[2019-05-29] MEDS ORDERED: CARVEDILOL 12.5 MG TAB PO ONE (10:45)
[2019-05-29] MEDS: CEFTRIAXONE SODIUM 2 GM in D5W 5% 50 ML IV SCH (10:47)
[2019-05-29] MEDS ORDERED: dilTIAZem 120MG ER CAP PO ONE (11:15)
[2019-05-29] MEDS: ACCU-CHEK COMFORT CURVE STRIP VI SCH ×3 (12:35→22:21)
[2019-05-29] MEDS: AZITHROMYCIN 500MG/ 250ML 250 ML IV SCH (12:39)
[2019-05-29] MEDS: InsuLIN REG 1unit/0.01ml Soln (100units/ml) SC SCH ×3 (12:43→22:22)
--- NOTE | 2019-05-29 13:55 | NUR ---
COVID 19 TEST IS NEGATIVE. ISOLATION DISCONTINUED.
[2019-05-29] MEDS ORDERED: methylPREDNISolone SOD SUCC 125 MG/2 ML VL IV SCH (14:00)
--- NOTE | 2019-05-29 14:14 | NUR ---
DR GAN GAVE DOWNGRADE TO TELE ORDER
[2019-05-29] MEDS: ALBUTEROL SULF HFA 90MCG INH 200DOSE IN SCH ×2 (14:54→22:18)
--- NOTE | 2019-05-29 14:54 | NUR ---
BREATHING TX ADMINISTERED VIA MDI WITH SPACER, PT TOLERATED WELL, NO ADVERSE REACTIONS NOTED. EDUCATED PT ON INHALER ADMINISTRATION WITH SPACER, PT VERBALIZED AND DEMONSTRATED UNDERSTANDING. HR 85, RR 16, SPO2 97% ON 2LPM NASAL CANNULA. NO SOB NOTED. WILL CONTINUE TO MONITOR PT.
--- NOTE | 2019-05-29 16:19 | NUR ---
REPORT GIVEN TO VALENTINO COLE, WILL TRANSFER TO TELE ROOM 220 B ON TELE 45. WAITING ON BED FROM CCT.
--- NOTE | 2019-05-29 17:00 | NUR ---
Telemetry transfer from [facility] admitted to Telemetry unit after SBAR received. Patient oriented to MICHELLE LAROSE, primary RN, unit, room, bed, and unit policies regarding patient care and visiting hours. Patient now on continuous telemetry monitoring, tele box #45 and telemetry reading on arrival to unit is sinus rhythm 92bpm. Patient placed on bedside oxygen, weighed by bedscale and encouraged to call if they need something. All questions and concerns addressed, patient verbalized understanding.
[2019-05-29] MEDS: FUROSEMIDE 100 MG/10ML VIAL IV SCH (17:50)
[2019-05-29] MEDS ORDERED: RIVAROXABAN 20 MG TAB PO SCH (18:00)
[2019-05-29] MEDS ORDERED: PRAVASTATIN SODIUM 20 MG TAB PO SCH (18:00)
--- NOTE | 2019-05-29 19:15 | NUR ---
Opening Shift Note Assumed care of patient, awake, alert and oriented x4, on 3L oxygen via NC with even and unlabored respirations, no S/S of distress/SOB or pain. Patient able to turn independently, bed in lowest locked position, side rails up x2, and call light within reach. Instructed on POC and to call for assist PRN, will continue to monitor for changes Q1hr and PRN.
[2019-05-29] MEDS ORDERED: INSULIN LANTUS (GLARGINE) 1 /0.01ml (100units/ml) SC SCH (22:00)
[2019-05-29] MEDS ORDERED: CARVEDILOL 12.5 MG TAB PO SCH (22:00)
[2019-05-29] MEDS: cloNIDine HCL 0.1 MG TAB PO SCH (22:18)
--- NOTE | 2019-05-29 22:18 | NUR ---
Respiratory note: INHALER GIVEN BY RN.
[2019-05-29] MEDS: dilTIAZem 120MG ER CAP PO SCH (22:20)
[2019-05-30 05:00] VITALS: BP 138/60
[2019-05-30 06:04] LABS: Basophils # (auto) 0 10 ^3/uL (0-0.2); Basophils % (auto) 0.1 % (0.0-2.0); Eosinophils # (auto) 0 10 ^3/uL (0-0.8); Hematocrit 37.3 % (36.0-46.0); Hemoglobin 12.6 g/dL (12.2-16.2); Lymphocytes # (auto) 1.6 10 ^3/uL (0.4-5.4); Lymphocytes % (auto) 16.5 % (10.0-50.0); Mean Corpuscular Hemoglobin 30.9 pg (28.0-32.0); Mean Corpuscular Hgb Conc. 33.7 g/dL (32.0-36.0); Mean Corpuscular Volume 91.5 fL (80.0-100.0); Monocytes # (auto) 0.7 10 ^3/uL (0-1.3); Monocytes % (auto) 7.9 % (0.0-12.0); Neutrophils # (auto) 7.1 10 ^3/uL (1.6-8.6); Neutrophils % (auto) 75.5 % (37.0-80.0); Nucleated Red Blood Cells % 0.1 %; Platelet Count (auto) 173 10^3/uL (140-450); Red Blood Cells 4.07 10^6/uL (4.0-5.20); Red Cell Distribution Width 15.4 % (11.8-14.3); White Blood Cell 9.4 10^3/uL (4.4-10.8)
[2019-05-30] MEDS: ALBUTEROL SULF HFA 90MCG INH 200DOSE IN SCH (06:12)
[2019-05-30 06:24] LABS: BUN/Creatinine Ratio 14.5; Potassium 3.9 mmol/L (3.5-5.1)
[2019-05-30] MEDS: FUROSEMIDE 100 MG/10ML VIAL IV SCH (06:36)
[2019-05-30] MEDS: InsuLIN REG 1unit/0.01ml Soln (100units/ml) SC SCH ×2 (06:38→11:30)
[2019-05-30] MEDS: ACCU-CHEK COMFORT CURVE STRIP VI SCH ×2 (06:38→11:59)
[2019-05-30] MEDS ORDERED: ALBUTEROL SULF 2.5 MG/0.5ML(0.5%) NEB SOLN NEB PRN (06:45)
[2019-05-30] MEDS ORDERED: CARVEDILOL 12.5 MG TAB PO SCH (08:00)
--- NOTE | 2019-05-30 08:48 | NUR ---
MD VALLECILLO AT BED SIDE. DISCUSSING POC WITH PATIENT. PATIENT VERBALIZES UNDERSTANDING.
[2019-05-30 09:00] VITALS: BP 134/63
[2019-05-30] MEDS ORDERED: LISINOPRIL 20 MG TAB PO SCH (10:00)
[2019-05-30] MEDS: ALBUTEROL SULF 2.5 MG/0.5ML(0.5%) NEB SOLN NEB SCH ×2 (10:11→14:20)
[2019-05-30] MEDS ORDERED: ALBUTEROL SULF 2.5 MG/0.5ML(0.5%) NEB SOLN NEB SCH (10:15)
[2019-05-30] MEDS: cloNIDine HCL 0.1 MG TAB PO SCH (10:25)
[2019-05-30] MEDS: dilTIAZem 120MG ER CAP PO SCH (10:26)
[2019-05-30] MEDS: POTASSIUM CHLORIDE 8 MEQ TAB PO SCH (10:27)
[2019-05-30] MEDS: FAMOTIDINE 20 MG TAB PO SCH (10:27)
[2019-05-30] MEDS: CEFTRIAXONE SODIUM 2 GM in D5W 5% 50 ML IV SCH (10:30)
[2019-05-30] MEDS: AZITHROMYCIN 500MG/ 250ML 250 ML IV SCH (11:36)
--- NOTE | 2019-05-30 12:00 | NUR ---
RECEIVED A CALL FROM MD VALLECILLO. NEW ORDERS RECEIVED.
--- NOTE | 2019-05-30 12:10 | NUR ---
RT AT BED SIDE FOR ABG DRAW.
[2019-05-30 13:00] VITALS: BP 140/64
--- NOTE | 2019-05-30 13:00 | NUR ---
MINING MANAGER AT BED SIDE FOR TROP DRAW ORDER
--- NOTE | 2019-05-30 13:34 | NUR ---
PULMO CONSULT DR CLARK AT BED SIDE ASSESSING PATIENT. NO NEW ORDERS RECEIVED.
[2019-05-30 13:53] VITALS: BP 140/64
--- NOTE | 2019-05-30 15:40 | NUR ---
Discharge instructions given as ordered. Encourage to follow up with PMD as instructed. All questions and concerns addressed. Patient verbalized understanding. Medication reconciliation form completed and copy given to patient. IV removed with catheter intact, pressure dressing applied, horne catheter removed. Telemetry unit returned to ICU. Patient taken to vehicle via wheelchair with all personal belongings, accompanied by staff. No distress noted at time of departure.
== END 2019-05-30 15:35 | disposition home or self-care (01) | DRG 291 ==
LOC: EDBD 03:08 → ER 03:09 → TELE 03:10 → ICU WEST 10:10 → TELE-CENTR 16:48
PROVIDERS: ADMIT Hospitalist; ATTEND Hospitalist
PROC: 5A09357 Assistance with Respiratory Ventilation, Less than 24 Consecutive Hours, Continuous Positive Airway Pressure (ICD-10-PCS; principal; 2019-05-29)
DX: I13.0 Hypertensive heart and chronic kidney disease with heart failure and stage 1 through stage 4 chronic kidney disease, or unspecified chronic kidney disease (principal); J96.21 Acute and chronic respiratory failure with hypoxia; I50.43 Acute on chronic combined systolic (congestive) and diastolic (congestive) heart failure; J44.1 Chronic obstructive pulmonary disease with (acute) exacerbation; J45.901 Unspecified asthma with (acute) exacerbation; E87.2 Acidosis; I42.9 Cardiomyopathy, unspecified; E11.65 Type 2 diabetes mellitus with hyperglycemia; N18.9 Chronic kidney disease, unspecified; I16.0 Hypertensive urgency; H40.9 Unspecified glaucoma; E78.00 Pure hypercholesterolemia, unspecified; F41.9 Anxiety disorder, unspecified; M10.9 Gout, unspecified; E66.9 Obesity, unspecified; E11.22 Type 2 diabetes mellitus with diabetic chronic kidney disease; Z66 Do not resuscitate; Z78.9 Other specified health status; Z79.01 Long term (current) use of anticoagulants; Z86.711 Personal history of pulmonary embolism; Z99.81 Dependence on supplemental oxygen; Z79.899 Other long term (current) drug therapy; Z90.49 Acquired absence of other specified parts of digestive tract; Z88.0 Allergy status to penicillin; Z68.30 Body mass index [BMI] 30.0-30.9, adult; Z20.828 Contact with and (suspected) exposure to other viral communicable diseases; Z79.4 Long term (current) use of insulin; Z87.891 Personal history of nicotine dependence
CPT/HCPCS: 36415; 36600; 71045; 80048; 80053; 81001; 82805; 82962; 83880; 84484; 85025; 87070; 87081; 87880; 93005; 94640; 94660; G0378; J0696; J1815; J1956; J7060

== ENCOUNTER 2019-07-25 05:43 | Emergency (ER) | payer OTHER ==
[~2019-07-25] VITALS: Ht 162.6 cm; Wt 81.6 kg
[~2019-07-25 05:43] MED LIST changes: +LISI40TA PO; -LISI40TA11 PO
[2019-07-25 06:42] LABS: Basophils # (auto) 0.1 10 ^3/uL (0-0.2); Basophils % (auto) 0.6 % (0.0-2.0); Eosinophils # (auto) 0.1 10 ^3/uL (0-0.8); Eosinophils % (auto) 0.9 % (0.0-7.0); Hematocrit 41.1 % (36.0-46.0); Hemoglobin 13.4 g/dL (12.2-16.2); Lymphocytes # (auto) 6.4 10 ^3/uL (0.4-5.4); Lymphocytes % (auto) 53.4 % (10.0-50.0); Mean Corpuscular Hemoglobin 30.2 pg (28.0-32.0); Mean Corpuscular Hgb Conc. 32.5 g/dL (32.0-36.0); Mean Corpuscular Volume 92.8 fL (80.0-100.0); Monocytes # (auto) 0.8 10 ^3/uL (0-1.3); Monocytes % (auto) 7.1 % (0.0-12.0); Neutrophils # (auto) 4.6 10 ^3/uL (1.6-8.6); Nucleated Red Blood Cells % 0.1 %; Platelet Count (auto) 228 10^3/uL (140-450); Red Blood Cells 4.43 10^6/uL (4.0-5.20); Red Cell Distribution Width 16.3 % (11.8-14.3)
[2019-07-25 06:59] LABS: Calcium 8.9 mg/dL (8.5-10.1); Potassium 3.8 mmol/L (3.5-5.1)
[2019-07-25 07:07] LABS: Albumin 3.3 g/dL (3.4-5.0); BUN/Creatinine Ratio 11.8; Bilirubin, Total 0.4 mg/dL (0.2-1.0); Magnesium 2.7 mg/dL (1.6-2.6); Total Protein 7.6 g/dL (6.4-8.2)
[2019-07-25 07:12] LABS: INR 0.96 (0.9-1.15); Partial Thromboplastin Time 23.3 sec (23.64-32.05)
[2019-07-25] MEDS ORDERED: cefTRIAXone 1GM/50ML D5W 50 ML IV ONE (08:30)
[2019-07-25] MEDS ORDERED: GABAPENTIN 300 MG CAP PO ONE (09:15)
[2019-07-25 09:29] LABS: Urine Bacteria NONE SEEN /hpf (None Seen); Urine Blood Negative /uL (Negative); Urine Hyaline Cast FEW /lpf (0 - 2); Urine Specific Gravity 1.012 (1.001-1.035); Urine WBC 2 /hpf (0 - 5)
[2019-07-25] MEDS ORDERED: ONDANSETRON HCL 4 MG/2 ML VIAL IV ONE (10:45)
[2019-07-25] MEDS ORDERED: MORPHINE SULF INJ 2 MG/ML SYRINGE 1ML IV ONE (10:45)
[2019-07-25] MEDS ORDERED: FUROSEMIDE 40 MG/4 ML VIAL IV ONE (12:45)
[2019-07-25] MEDS ORDERED: MILK OF MAGNESIA 30ML SUSP PO ONE (17:15)
[2019-07-25 19:00] VITALS: BP 133/64
== END 2019-07-25 18:11 | disposition short-term general hospital (02) ==
LOC: EDBD 05:43 → ER 05:43
DX: J44.1 Chronic obstructive pulmonary disease with (acute) exacerbation (principal); J18.9 Pneumonia, unspecified organism; E11.65 Type 2 diabetes mellitus with hyperglycemia; E11.21 Type 2 diabetes mellitus with diabetic nephropathy; I10 Essential (primary) hypertension; E11.22 Type 2 diabetes mellitus with diabetic chronic kidney disease; I13.0 Hypertensive heart and chronic kidney disease with heart failure and stage 1 through stage 4 chronic kidney disease, or unspecified chronic kidney disease; N18.9 Chronic kidney disease, unspecified; I50.9 Heart failure, unspecified; E78.5 Hyperlipidemia, unspecified; Z20.828 Contact with and (suspected) exposure to other viral communicable diseases; Z90.49 Acquired absence of other specified parts of digestive tract; Z87.891 Personal history of nicotine dependence
CPT/HCPCS: 36415; 36600; 71045; 80053; 81001; 82805; 82962; 83735; 83880; 84484; 85025; 85379; 85610; 85730; 87040; 87070; 87804; 87880; 93005; 94660; 96365; 96366; 96375; 99291; C9803; J0696; J1940; J2270; J2405; U0003